=== PATIENT | male | born 1980 | race Caucasian/White ===

== ENCOUNTER 2020-10-24 22:09 | Emergency (ER) | payer OTHER, SELFPAY ==
[2020-10-24 22:17] VITALS: BP 175/80; PULSE 68; RESP 16; TEMP 36.4; O2SAT 96; BMI 36.9
--- NOTE | 2020-10-24 22:27 | CTR_ITS ---
PROCEDURE INFORMATION: Exam: CT Abdomen And Pelvis With Contrast Exam date and time: 10/24/2020 10:27 PM Age: 40 years old Clinical indication: Abdominal pain; Localized; Left lower quadrant (llq); Prior surgery; Surgery date: 6+ months; Surgery type: Appy; Additional info: Llq pain, n/v TECHNIQUE: Imaging protocol: Computed tomography of the abdomen and pelvis with contrast. Radiation optimization: All CT scans at this facility use at least one of these dose optimization techniques: automated exposure control; mA and/or kV adjustment per patient size (includes targeted exams where dose is matched to clinical indication); or iterative reconstruction. Contrast material: OMNI 300; Contrast volume: 95 ml; Contrast route: INTRAVENOUS (IV); COMPARISON: CT abdomen pelvis w con* [id number] 09/05/2017 11:25 AM RADIATION DOSE METRICS: Total DLP (mGy-cm): 1981.38 FINDINGS: Lungs: The lung bases are clear. No effusion Liver: Normal. No mass. Gallbladder and bile ducts: No wall thickening, pericholecystic fluid or stones. Pancreas: Normal. No ductal dilation. Spleen: Normal. No splenomegaly. Adrenal glands: Normal. No mass. Kidneys and ureters: 2 mm nonobstructing left renal pelvis stone. 2 mm mildly obstructing left distal ureteral stone. Stomach and bowel: Unremarkable. No obstruction. No mucosal thickening. Appendix: Appendix has been removed. Intraperitoneal space: Unremarkable. No free air. No significant fluid collection. Vasculature: Unremarkable. No abdominal aortic aneurysm. Lymph nodes: Unremarkable. No enlarged lymph nodes. Urinary bladder: Unremarkable as visualized. Reproductive: Unremarkable as visualized. Bones/joints: Unremarkable. No acute fracture. Soft tissues: Unremarkable. CT/CT abdomen pelvis w con* [id number] IMPRESSION: 1. 2 mm mildly obstructing left distal ureteral stone. 2. 2 mm nonobstructing left renal pelvis stone. Radiation Dose CTDIVOL = (mGy): DLP = 1981.38 (mGy-cm)
--- NOTE | 2020-10-24 22:27 | W.ED.ABDPA2 ---
HPI - Abdominal Pain General: Chief Complaint: Abdominal Pain Stated Complaint: abd pain Time Seen by Provider: 10/24/20 22:27 History of Present Illness: HPI narrative: 40-year-old male patient comes in today with complaints of left lower abdominal pain. Patient states he had pain this morning early seem to radiate into his testicle but that resolved. Patient reports this evening he had sudden onset of severe pain in the left lower quadrant of the abdomen that caused him to become ill and throw up. Patient does have a history of prior renal stone. Patient denies any fever or chills. Review of Systems General: Reports: 10 or more systems reviewed and unremarkable except in HPI and below GI: Reports: abdominal pain Physical Exam Const: COMMON NORMALS: no acute distress and patient oriented x3 GENERAL APPEARANCE: cooperative HENMT: COMMON NORMALS: normocephalic and Normal external nose present HEAD & SCALP: normal to inspection and normocephalic NOSE: Normal external nose present MOUTH: Normal oral and palatal mucosa present Eye: GENERAL EYE: appearance normal, both eyes and all related structures Neck/C-Spine: COMMON NORMALS: full ROM Lymph: LYMPHATIC: no lymphadenopathy noted Chest: COMMONS NORMALS: normal inspection of the chest Resp: COMMON NORMALS: normal respiratory effort EFFORT & INSPECTION: Yes able to speak in complete sentences Cardio: COMMON NORMALS: regular rate and regular rhythm RATE: regular rate RHYTHM: regular rhythm GI: COMMON NORMALS: Soft to palpation PALPATION: Yes Soft to palpation and Yes Tenderness to palpation present (GI) Details: LLQ : COMMON NORMALS: Yes no CVA tenderness BLADDER/KIDNEY EXAM: Yes no CVA tenderness Back/Pelvis: COMMON NORMALS: no CVA tenderness and thoracic and lumbar spine normal to inspection Extremity: COMMON NORMALS: normal to inspection Neuro: COMMON NORMALS: patient oriented x3 and moves all extremities Psych: COMMON NORMALS: mental status grossly normal and cooperative Skin: COMMON NORMALS: no rashes or lesions noted GENERAL SKIN EXAM: no rashes or lesions noted Course Vital Signs: Vital signs: Vital Signs Temperature 97.6 F 10/24/20 22:17 Pulse Rate 68 10/24/20 22:17 Respiratory Rate 16 10/24/20 22:17 Blood Pressure 175/80 10/24/20 22:17 Pulse Oximetry 96 10/24/20 22:17 MDM - Abdominal Pain MDM Narrative: Medical decision making narrative: Patient presents with left lower quadrant abdominal pain and some nausea and vomiting. Pain was onset sharp with causing emesis this evening. Patient did report some pain earlier in the day that radiated into his groin. On exam respirations were even lungs were clear to auscultation. No CVA tenderness. Abdomen was soft with some left lower quadrant abdominal tenderness. Differential diagnosis includes but not limited to diverticulitis, constipation, renal calculi. CT scan noted a 2 mm stone in the distal left ureter. Laboratory values including a CBC, CMP, and urinalysis showed blood in the urine but otherwise was unremarkable. Reviewed exam with patient recommended treatment for pain and need for follow-up with urology. Patient reported understanding and agreed to plan. Lab Data: Labs: Lab Results 10/24/20 10/24/20 10/24/20 Range/Units 22:47 22:47 23:20 WBC 7.8 (4.0-10.0) 10^3/ uL RBC 4.80 (4.1-5.3) 10^6/u L Hgb 14.8 (11.7-16.6) g/dL Hct 45.1 (42.0-52.0) % MCV 94.0 (80-94) fl MCH 30.8 (28.0-34.0) pg MCHC 32.8 (30.0-36.0) g/dL RDW 12.9 (12.1-15.1) % Plt Count 235 (130-400) 10^3/c mm MPV 10.8 H (7.4-10.4) fL Neut % (Auto) 57.9 % Lymph % (Auto) 31.3 % [place] % (Auto) 6.8 % Eos % (Auto) 2.7 % Baso % (Auto) 0.9 % Neut # (Auto) 4.55 (1.8-7.7) 10^3/u L Lymph # (Auto) 2.5 (0.8-4.8) 10^3/u L [place] # (Auto) 0.5 (0.2-0.9) 10^3/u L Eos # (Auto) 0.2 (0.0-0.8) 10^3/u L Baso # (Auto) 0.1 (0.0-0.1) 10^3/u L Nucleated RBC % (a uto) 0 % Nucleated RBCs # 0.0 /100WBC Sodium 140 (136-145) mmol/L Potassium 4.0 (3.5-5.1) mmol/L Chloride 103 (98-107) mmol/L Carbon Dioxide 24 (22-29) mmol/L Anion Gap 17.0 (5-19) BUN 14 (6-20) mg/dL Creatinine 1.0 (0.7-1.2) mg/dL GFR Calculation 82.3 L (90-130) mL/min Glucose 101 (65-115) mg/dL Calculated Osmolal ity 291 (285-295) mOsm/k g Calcium 9.0 (8.5-10.5) mg/dL Total Bilirubin 0.3 (0.15-1.2) mg/dL AST 20 (0-40) U/L ALT 15 (0-41) U/L Alkaline Phosphata se 95 (40-130) IU/L Total Protein 7.3 (6.6-8.7) g/dL Albumin 4.1 (3.5-5.2) g/dL Globulin 3.2 (1.3-4.6) g/dL Lipase 19 (13-60) U/L Urine Color Yellow (Yellow) Urine Appearance Clear (CLEAR) Urine pH 5 (5-7) Ur Specific Gravit y 1.015 (1.005-1.030) Urine Protein Neg (Negative) Urine Glucose (UA) Norm (Normal) Urine Ketones Negative (Negative) Urine Blood 3+ H (Negative) Urine Nitrate Negative (Negative) Urine Bilirubin Neg (Negative) Urine Urobilinogen Norm (Negative) mg/dL Ur Leukocyte Minerva ase Negative (Negative) Urine RBC 50-80 H (0-2) /hpf Urine WBC 0-4 H (0-5) /hpf Ur Squamous Epith Cells 0-4 H (0-5) /hpf Amorphous Sediment Not Reportable Urine Bacteria Trace (NONE) /hpf Urine Mucus Trace /hpf Discharge Plan Discharge Patient Disposition: Home Clinical Impression: Left ureteral calculus Condition: Stable Prescriptions: New tamsulosin 0.4 mg capsule 0.4 mg PO DAILY Qty: 10 RF: 0 ondansetron 4 mg tablet,disintegrating 4 mg PO Q8H PRN (Reason: nausea and vomiting) Qty: 7 RF: 0 hydrocodone-acetaminophen 5-325 mg tablet 1 tab PO Q6H PRN (Reason: pain (scale score 7-10)) Qty: 10 RF: 0 Discharge Orders: Discharge ED (Routine); Ordered 10/24/20 Ordered By: Angel Vaughn Referrals: Charbel Burnham MD [Primary Care Provider] - Discharge Diet: Usual diet Discharge Activity: Increase activity as tolerated Patient Instructions: Opioid Safety Activity Restrictions/Additional Instructions: Home and rest. Healthy diet and activity. Take medications as prescribed. Case management will contact you in regards to a follow-up appointment with urology. Most often a stone the size of 2 mm were passed without any difficulty. It may take up to 2 weeks for the stone to pass. It is recommended that you follow-up with urologist, Dr. Roach, for further evaluation and treatment. Monitor for uncontrolled pain or fever greater than 100.4. If you have any of these symptoms return to the ER for further evaluation. Follow-up with your primary care as needed. Coding Level of Care Code ED Staff [employer] for Ned Sanabria
--- NOTE | 2020-10-24 22:28 | PC.NURSE ---
PT STATES HE HAS HAD KIDNEY STONES BEFORE AND THIS ISN'T WHAT IT FELT LIKE. FEELS BETTER WHEN HE TAKES A DEEP BREATH AND DOESN'T HURT WHEN HE PUSHES ON IT/ TOUCHES IT.
[2020-10-24] MEDS: iohexol 300 mg/mL 100 mL Btl IV (22:51)
[2020-10-24] MEDS: morphine 4 mg/mL SDV 1 mL 2 MG IVP (23:00)
[2020-10-24] MEDS: ondansetron 2 mg/ML SDV 2 mL 4 MG IVP (23:00)
[2020-10-24 23:12] LABS: Basophils # 0.1 10^3/uL (0.0-0.1); Basophils % 0.9 %; Eosinophils # 0.2 10^3/uL (0.0-0.8); Eosinophils % 2.7 %; Hematocrit 45.1 % (42.0-52.0); Hemoglobin 14.8 g/dL (11.7-16.6); Lymphocytes # 2.5 10^3/uL (0.8-4.8); Lymphocytes % 31.3 %; Mean Corpuscular HGB Conc 32.8 g/dL (30.0-36.0); Mean Corpuscular Hemoglobin 30.8 pg (28.0-34.0); Mean Platelet Volume 10.8 fL (7.4-10.4); Monocytes # 0.5 10^3/uL (0.2-0.9); Monocytes % 6.8 %; Neutrophils # 4.55 10^3/uL (1.8-7.7); Neutrophils % 57.9 %; Nucleated Red Blood Cells % 0 %; Platelet Count 235 10^3/cmm (130-400); Red Cell Distribution Width 12.9 % (12.1-15.1); White Blood Count 7.8 10^3/uL (4.0-10.0)
[2020-10-24 23:21] LABS: Alanine Aminotransferase 15 U/L (0-41); Albumin Level 4.1 g/dL (3.5-5.2); Alkaline Phosphatase 95 IU/L (40-130); Aspartate Amino Transferase 20 U/L (0-40); Blood Urea Nitrogen 14 mg/dL (6-20); Carbon Dioxide 24 mmol/L (22-29); Chloride 103 mmol/L (98-107); Globulin 3.2 g/dL (1.3-4.6); Glomerular Filtration Rate 82.3 mL/min (90-130); Glucose 101 mg/dL (65-115); Lipase 19 U/L (13-60); Osmolality Calculated 291 mOsm/kg (285-295); Sodium 140 mmol/L (136-145); Total Bilirubin 0.3 mg/dL (0.15-1.2); Total Protein 7.3 g/dL (6.6-8.7)
[2020-10-24] MEDS: ketorolac 30 mg/mL INJ 15 MG IVP (23:25)
[2020-10-24 23:31] LABS: Add Urine Microscopic? YES; Bilirubin Urine Neg (Negative); Blood Urine 3+ (Negative); Glucose Urine UA Norm (Normal); Ketones Urine Negative (Negative); Leukocyte Esterase Urine Negative (Negative); Nitrate Urine Negative (Negative); Protein Urine Neg (Negative); Specific Gravity, Urine 1.015 (1.005-1.030); Urine Appearance Clear (CLEAR); Urine Color Yellow (Yellow); Urobilinogen Urine Norm (Negative); pH Urine 5 (5-7)
[2020-10-24] MEDS: sodium chloride 0.9% 500 ML 999 ML IV (23:31)
[2020-10-24 23:42] LABS: Add Urine Culture? Yes; Bacteria Urine TRACE /hpf; Mucus Urine TRACE /hpf; RBC Urine 50-80 /hpf (0-2); Squamous Epithelial Cell Urine 0-4 /hpf (0-5); WBC Urine 0-4 /hpf (0-5)
[2020-10-25 00:02] VITALS: RESP 18
[2020-10-25] MEDS: morphine 4 mg/mL SDV 1 mL IVP (00:02)
[2020-10-25] MEDS: ondansetron 4 MG Tablet PO (00:05)
[2020-10-25] MEDS: HYDROcodone-acetaminophen 7.5-325 mg Tablet 2 TAB PO (00:05)
[2020-10-25 00:19] VITALS: BP 107/73; PULSE 61; RESP 18; O2SAT 96
--- NOTE | 2020-10-25 10:55 | DCPLANNER ---
compensation programs manager had message to schedule a follow up appointment for patient with Dr. Roach. compensation programs manager called the office of Dr. Roach, spoke with Conrad, gave clinic patients information. compensation programs manager was told that patients information would be printed and reviewed. Clinic will call patient with appointment information.
--- NOTE | 2020-10-26 08:02 | DCPLANNER ---
Patient had a follow up appointment scheduled for 10.26.[address] Roach - patient did attend appointment.
== END 2020-10-25 00:11 | disposition home or self-care (01) ==
PROVIDERS: Emergency Provider Nurse Practitioner Family; PCP Family Medicine
DX: N20.2 Calculus of kidney with calculus of ureter (principal)
CPT/HCPCS: 74177; 80053; 81001; 83690; 85025; 87086; 96374; 96375; 96376; 99284; J1885; J2270; J2405; J7040; Q0162; Q9967

== ENCOUNTER 2020-10-26 07:05 | Outpatient (CLI) | payer BC, SELFPAY ==
--- NOTE | 2020-10-26 07:12 | XRR_ITS ---
PROCEDURE INFORMATION: Exam: XR Abdomen Exam date and time: 10/26/2020 7:12 AM Age: 40 years old Clinical indication: Pain and condition or disease; Kidney or ureter condition; Calculus (stone) in ureter; Abdominal pain; Localized; Left; Prior surgery; Surgery type: Appy; Additional info: Ureteral calculus TECHNIQUE: Imaging protocol: XR of the abdomen. Views: Frontal supine view of the abdomen. 1 View. COMPARISON: CT abdomen pelvis w con* [id number] 10/24/2020 10:49 PM FINDINGS: Gastrointestinal tract: Normal. No bowel dilation. Organs: Punctate stone again noted in the upper pole left kidney. Bones/joints: Unremarkable. XR/XR KUB [id number] IMPRESSION: Redemonstrated punctate stone in the upper pole of the left kidney.
== END 2020-10-26 07:06 | disposition home or self-care (01) ==
PROVIDERS: PCP Family Medicine; Visit Provider Urology
DX: N20.1 Calculus of ureter (principal); N20.0 Calculus of kidney
CPT/HCPCS: 74018; 81003

== ENCOUNTER 2020-10-29 08:52 | Outpatient (CLI) | payer OTHER, SELFPAY ==
--- NOTE | 2020-10-29 09:00 | XR_ITS ---
WS: [id number] KUB, AP view, 10/29/2020 Clinical Data: stones Comparison: KUB, 10/26/2020. Findings: No abnormal intraabdominal masses or calcifications are seen. There is no dilatated small bowel or ev idence of obstruction. The bladder is partly full. No true pelvic stones are seen. XR/XR KUB [id number] Impression: Negative KUB.
== END 2020-10-29 08:53 | disposition home or self-care (01) ==
PROVIDERS: PCP Family Medicine; Visit Provider Urology
DX: N20.1 Calculus of ureter (principal); N23 Unspecified renal colic
CPT/HCPCS: 74018; 81003

== ENCOUNTER 2024-10-03 13:45 | Outpatient (CLI) | payer OTHER, SELFPAY ==
--- NOTE | 2024-10-03 13:55 | CT_ITS ---
WS: [id number] CT ANGIOGRAM CEREBRAL ARTERIES HISTORY: HEADACHE ASSOCIATED W/SEXUAL ACTIVITY TYPE 2 TECHNIQUE: Pre and postcontrast imaging through the brain. CT angiogram is performed of the cerebral arteries. During arterial injection imaging is obtained from the skull vertex to the skull base in 1.25 mm imaging. Coronal and sagittal reformats are submitted. Additional multi planar reformats of the cerebral arteries are submitted, MIP imaging also reviewed. All CT scans at [facility] use at least one of these dose optimization techniques: automated exposure control; mA and/or kV adjustment per patient size (includes targeted exams where dose is matched to clinical indication); or iterative reconstruction. CONTRAST: Omnipaque 350; 100 mL IV. DLP: 1644.25 mGy.cm COMPARISON: None available. Noncontrast CT head: No acute intracranial hemorrhage. Area of decreased attenuation in the posterior LEFT cerebellum corresponds to a prominent sulcus. No atrophy. No enhancing masses. No volume loss. No prior infarct. No vascular malformation. Intracranial vertebral arteries: Normal with no significant atherosclerosis. Basilar artery: No significant stenosis or occlusion. No aneurysm. Intracranial Internal carotid arteries: Demonstrates no significant stenosis or plaque. Middle cerebral arteries: Normal. Anterior cerebral arteries and ACOM: Normal. Posterior cerebral arteries and PCOM's: Normal. Dural venous sinuses are normally enhancing. Mastoid air cells: Normal. Paranasal sinuses: Normal. Calvarium: Normal. CT/CT angio head [id number] IMPRESSION: 1. Normal CT angiogram [facility] [place]. 2. No occlusions or aneurysms. 3. No volume loss or prior infarcts. 4. Normal dural venous sinuses.
[2024-10-03] MEDS: iohexol 350 mg/mL 500 mL Btl (per mL) IV (14:28)
== END 2024-10-03 13:46 | disposition home or self-care (01) ==
LOC: RAD 13:47
PROVIDERS: PCP Family Medicine; Visit Provider Nurse Practitioner Family
DX: G44.82 Headache associated with sexual activity (principal)
CPT/HCPCS: 70496